=== PATIENT | male | born 1980 | race Caucasian/White ===

== ENCOUNTER 2017-10-27 11:26 | Inpatient (IN) | payer OTHER, MEDICARE ==
[~2017-10-27] VITALS: Ht 182.9 cm; Wt 85.0 kg
[~2017-10-27 11:26] MED LIST: ALBUTEROL0.09 MG/A1 INH; AMANTADINE HCL100 M1 PO; AMANTADINE HCL100 M2 PO; ANDROGEL5 GM TOP; ARTIFICIAL TEAR15 M5 OPH; ATORVASTATIN CA40 MG PO; AUGMENTIN 875 M1 TAB PO; DEPAKOTE500 M1 PO; DILANTIN50 MG PO; DIVALPROEX SOD500 M2 PO; EXTENDED PHENY100 MG PO; HYDROMET PO; LEVAQUIN750 MG PO; MEDROL DOSEPAK1 PAC PO; MOXIFLOXACIN H400 MG PO; PREDNICOT20 MG PO; RISPERIDONE0.25 MG PO; ROBITUSSIN W/CO10 ML PO; SERTRALINE HCL100 MG PO; TESSALON PERLE100 MG PO; TRAZODONE50 MG PO; VENTOLIN H0.09 MG/Ac PO; VITAMIN D1000 UNIT PO; VITAMIN D50000 IU PO
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
[2017-10-27 11:46] LABS: ABSOLUTE BASOPHIL COUNT 0 /CUMM (0.0-0.2); ABSOLUTE EOSINOPHIL COUNT 0 /CUMM (0.0-0.7); ABSOLUTE GRANULOCYTE CT 11.3 /CUMM (1.4-6.5); ABSOLUTE LYMPH COUNT 2.7 /CUMM (1.2-3.4); ABSOLUTE MONOCYTE COUNT 0.7 /CUMM (0.10-0.60); BASOPHIL % 0.3 % (0.0-2.0); EOSINOPHIL % 0.1 % (0-5); GRANULOCYTE % 76.3 % (42.2-75.2); HEMATOCRIT 50.9 % (42-52); MEAN CORPUSCULAR HGB CONC 33.8 G/DL (33.0-37.0); MEAN CORPUSCULAR VOLUME 88.8 FL (80.0-94.0); MEAN PLATELET VOLUME 8.4 FL (7.4-10.4); PLATELET COUNT 344 /CUMM (130-400); RBC DISTRIBUTION WIDTH 13.3 % (11.5-14.5); RED BLOOD CELL CT 5.74 /CUMM (4.70-6.10); WHITE BLOOD CELL COUNT 14.8 /CUMM (4.8-10.8)
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
[2017-10-27] MEDS ORDERED: DILANTIN100 M1 PO (14:00)
[2017-10-27] MEDS ORDERED: AMANTADINE100 M2 PO ×2 (14:02)
[2017-10-27] MEDS ORDERED: RISPERDAL0.25 M1 PO (14:03)
[2017-10-27] MEDS ORDERED: RISPERDAL1 M1 PO (14:04)
[2017-10-27] MEDS ORDERED: VITAMIN D250000 UNIT PO (14:05)
[2017-10-27] MEDS ORDERED: LIPITOR40 M1 PO (14:05)
[2017-10-27] MEDS ORDERED: ZOLOFT100 M1 PO (14:05)
[2017-10-27] MEDS ORDERED: TRAZODONE HCL50 M1 PO (14:06)
[2017-10-27] MEDS ORDERED: ANDROGEL75 G1 TOP (14:07)
--- NOTE | 2017-10-27 14:12 | RADIOLOGY REPORT ---
EXAMINATION: XR PORTABLE CHEST CLINICAL INFORMATION: 37-year-old male patient with wide-complex tachycardia. COMPARISON: Chest x-ray done January 25, 2016. (Normal). TECHNIQUE: AP portable semierect view of the chest was obtained. The time of examination was 1:13 PM. FINDINGS: The heart is borderline enlarged. This is exaggerated by the AP semierect position of the patient. There is central pulmonary vascular congestion and early signs of interstitial pulmonary edema. No pleural effusion is appreciated. IMPRESSION: Early interstitial pulmonary edema.
[2017-10-27 18:24] VITALS: BP 120/64
[2017-10-27 21:40] VITALS: BP 110/76
--- NOTE | 2017-10-28 00:06 | Admission Certification ---
Admission Certification Certification Statement - As attending physician, I certify that at the time of - admission, based on clinical presentation, severity of - symptoms, need for further diagnostic testing and - therapeutic interventions, and risk of adverse outcomes - without in-hospital treatment, in my clinical assessment, - this patient requires an acute hospital stay for a minimum - of two nights or longer. I have also considered psychsocial - factors such as support system, advanced age, financial - issues, cognitive issues, and failed out-patient treatments, - past re-admission history, safety of patient, and lack of - compliance as applicable. Specific rationale supporting this admission is: The patient had a prolonged episode of primarily SVT. Concern regarding potential ischemia. She received IV Adenosine and miodaroneto allow time ofr vessels. Needs IVhydration, sleep and cardiology consult.
[2017-10-28 06:30] VITALS: BP 122/72
[2017-10-28 08:18] LABS: ABSOLUTE BASOPHIL COUNT 0 /CUMM (0.0-0.2); ABSOLUTE EOSINOPHIL COUNT 0.1 /CUMM (0.0-0.7); ABSOLUTE GRANULOCYTE CT 2.8 /CUMM (1.4-6.5); ABSOLUTE LYMPH COUNT 1.9 /CUMM (1.2-3.4); ABSOLUTE MONOCYTE COUNT 0.4 /CUMM (0.10-0.60); BASOPHIL % 0.3 % (0.0-2.0); EOSINOPHIL % 1.1 % (0-5); GRANULOCYTE % 54.1 % (42.2-75.2); MEAN CORPUSCULAR HGB 30.5 PG (27.0-31.0); MEAN CORPUSCULAR HGB CONC 34.1 G/DL (33.0-37.0); MEAN CORPUSCULAR VOLUME 89.3 FL (80.0-94.0); PLATELET COUNT 174 /CUMM (130-400); RBC DISTRIBUTION WIDTH 13.1 % (11.5-14.5); RED BLOOD CELL CT 4.46 /CUMM (4.70-6.10)
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
[2017-10-28 08:53] LABS: HEMATOCRIT 39.9 % (42-52); WHITE BLOOD CELL COUNT 5.2 /CUMM (4.8-10.8)
--- NOTE | 2017-10-28 10:11 | Patient Discharge Instructions ---
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 after discharge Diet Continue normal diet: Yes Activity Activity Self Limited: Yes Acute Coronary Syndrome Inclusion Criteria At DC or during hospital stay patient has or had the following: ACS DIAGNOSIS No Discharge Core Measures Meds if any: Prescribed or Continued at Discharge Meds if any: NOT Prescribed or Continued at Discharge Congestive Heart Failure Inclusion Criteria At DC or during hospital stay patient has or had the following: CHF DIAGNOSIS No Discharge Core Measures Meds if any: Prescribed or Continued at Discharge Meds if any: NOT Prescribed or Continued at Discharge Cerebrovascular accident Inclusion Criteria At DC or during hospital stay patient has or had the following: CVA/TIA Diagnosis No Discharge Core Measures Meds if any: Prescribed or Continued at Discharge Meds if any: NOT Prescribed or Continued at Discharge Venous thromboembolism Inclusion Criteria VTE Diagnosis No VTE Type NONE VTE Confirmed by (Test) NONE Discharge Core Measures - Per Current guidelines, there needs to be overlap - treatment for the first 5 days of Warfarin therapy. - If discharged on Warfarin prior to 5 days of - overlap therapy, the patient will need to be - assessed for post discharge needs including - *Post discharge parental anticoagulation - *Warfarin and/or parental anticoagulation education - *Follow up date to check INR post discharge At least 5 days overlap therapy as Inpatient No Meds if any: Prescribed or Continued at Discharge Note: Overlap Therapy is Warfarin and Anticoagulant Meds if any: NOT Prescribed or Continued at Discharge
[2017-10-28 14:42] VITALS: BP 128/84
--- NOTE | 2017-10-28 16:43 | Discharge Summary ---
Visit Information Visit Dates Admission Date: 10/27/17 Discharge Date: 10/28/17 Hospital Course Course Attending Physician: Scot De MD Primary Care Physician: Arlene Robison MD Allergies: Coded Allergies: bacitracin (From Triple Antibiotic) (Severe, RED WELTS 10/27/17) erythromycin base (Severe, ANAPHYLAXIS 10/27/17) erythrosine sodium (erythrosine) (Severe, ANAPHYLAXIS 10/27/17) neomycin (From Triple Antibiotic) (Severe, RED WELTS 10/27/17) polymyxin B (From Triple Antibiotic) (Severe, RED WELTS 10/27/17) Uncoded Allergies: PLASTIC BANDAIDS (Severe, RED WELTS 12/17/10) Discharge Instructions Medications at Discharge Discharge Medications: Continue taking these medications: Divalproex Sodium (Depakote) 500 MG TABLET.DR 1 Tablet ORAL DAILY @8 AM Comments: Last Taken: 10/28/17 Time: 9:45 AM Phenytoin (Dilantin) 50 MG TAB.CHEW 1 Tablet ORAL 1999 Comments: Last Taken: 10/27/17 Time: 8:15 PM Divalproex Sodium (Divalproex Sodium) 500 MG TABLET.DR 2 Tablet ORAL 1999 Qty = 90 Comments: Last Taken: 10/27/17 Time: 8:10 AM Cholecalciferol (Vitamin D3) (Vitamin D) 1,000 UNIT TABLET 3 Tablet ORAL DAILY Comments: Last Taken: NOT GIVEN IN HOSPITAL Time: Phenytoin (Dilantin) 100 MG CAPSULE 2 Capsule ORAL TWICE DAILY Comments: Last Taken: 10/28/17 Time: 9:40 AM Amantadine HCl (Amantadine) 100 MG TABLET 2 Tablet ORAL 08OO Comments: Last Taken: 10/28/17 Time: 9:45 AM Amantadine HCl (Amantadine) 100 MG TABLET 1 Tablet ORAL 12OO Comments: Last Taken: 10/28/17 Time: 2:30 PM Risperidone (Risperdal) 0.25 MG TABLET 1 Tablet ORAL DAILY @8 AM Comments: Last Taken: 10/28/17 Time: 9:45 AM Risperidone (Risperdal) 1 MG TABLET 1 Tablet ORAL THREE TIMES DAILY Comments: Last Taken: 10/28/17 Time: 2:30 PM Ergocalciferol (Vitamin D2) (Vitamin D2) 50,000 UNIT CAPSULE 1 Capsule ORAL EVERY THURSDAY Comments: Last Taken: NOT GIVEN IN HOSPITAL Time: Sertraline HCl (Zoloft) 100 MG TABLET 1 Tablet ORAL 1999 Comments: Last Taken: 10/27/17 Time: 8:10 PM Atorvastatin Calcium (Lipitor) 40 MG TABLET 1 Tablet ORAL DAILY Comments: Last Taken: 10/27/17 Time: 8:10 PM Trazodone HCl (Trazodone HCl) 50 MG TABLET 1 Tablet ORAL 1999 Comments: Last Taken: 10/27/17 Time: 8:10 PM Testosterone (Androgel) 20.25/1.25 GEL..TIMBER APPRAISER 2 Packet On the skin 2030 Comments: Last Taken: NOT GIVEN IN HOSPITAL Time: Copies To: Enriqueta GREENWOOD,Arlene Bobo
== END 2017-10-28 14:30 | DRG 310 ==
LOC: ERH 11:26 → ERHI 12:47 → ENRESERV 14:26 → ENTRNSPT 15:20 → EDTRNSPT 15:26 → EDTRNSPTSTS 15:26 → 1NO 15:33 → CMPTRNSPT 16:15 → ENPENDDIS 10-28 14:14 → 1NO 10-28 14:30
PROVIDERS: Internal Medicine Adolescent Medicine; Physician Assistant Medical
DX: I47.1 Supraventricular tachycardia (principal); Z87.820 Personal history of traumatic brain injury; Z88.1 Allergy status to other antibiotic agents; R27.0 Ataxia, unspecified; H53.47 Heteronymous bilateral field defects; F41.9 Anxiety disorder, unspecified; G40.909 Epilepsy, unspecified, not intractable, without status epilepticus; R45.1 Restlessness and agitation; T38.7X5A Adverse effect of androgens and anabolic congeners, initial encounter; D75.1 Secondary polycythemia; E86.0 Dehydration; Z72.820 Sleep deprivation; T43.595A Adverse effect of other antipsychotics and neuroleptics, initial encounter; T42.0X5A Adverse effect of hydantoin derivatives, initial encounter; F39 Unspecified mood [affective] disorder; I45.10 Unspecified right bundle-branch block
CPT/HCPCS: 1NP; 36592; 71045; 80307; 81003; 82436; 93005; 93010; 96361; 96374; 96375; 99291; J0153; J0282; J1650